=== PATIENT | female | born 1990 | race Caucasian/White ===

== ENCOUNTER 2022-10-12 02:11 | Emergency (ER) | payer OTHER ==
[~2022-10-12] VITALS: Ht 154.9 cm; Wt 53.6 kg
[2022-10-12] MEDS ORDERED: SERT-158 PO (02:18)
[2022-10-12 04:18] LABS: AMPHET/METH SCREEN,URINE NEGATIVE (NEGATIVE); BARBITURATE SCREEN, URINE NEGATIVE (NEGATIVE); BENZODIAZEPINES SCREEN,URINE NEGATIVE (NEGATIVE); CANNABINOID SCREEN,URINE POSITIVE (NEGATIVE); COCAINE SCREEN,URINE POSITIVE (NEGATIVE); METHADONE SCREEN, URINE NEGATIVE (NEGATIVE); OPIATE SCREEN,URINE NEGATIVE (NEGATIVE)
[2022-10-12 04:19] LABS: PHENCYCLIDINE SCREEN,URINE NEGATIVE (NEGATIVE)
[2022-10-12 06:17] VITALS: BP 124/86
== END 2022-10-12 06:19 | disposition home or self-care (01) ==
LOC: EMS 02:13
DX: F14.10 Cocaine abuse, uncomplicated (principal); F10.20 Alcohol dependence, uncomplicated; F12.90 Cannabis use, unspecified, uncomplicated; F17.210 Nicotine dependence, cigarettes, uncomplicated
CPT/HCPCS: 93005; 99285